=== PATIENT | male | born 1985 | race Two or more races ===

== ENCOUNTER 2017-05-30 09:17 | Emergency (ER) | payer OTHER ==
[2017-05-30] MEDS ORDERED: HYDROmorphONE/DILAUDID 1 MG/ML INJ IVP ONE (09:29)
--- NOTE | 2017-05-30 09:33 | EDPHY ---
HPI/HX/ROS/PE/MDM Narrative: CHIEF COMPLAINT: Left ankle injury HISTORY OF PRESENT ILLNESS: The patient is a 32 y/o male arriving via EMS with his complaining of left ankle pain secondary to a mechanical fall this morning. He was walking on icy stairs and lost traction causing him to roll his ankle inwards. He heard a crack and had immediate pain in his ankle, worse on the medial aspect. His pain is currently 8/10 in severity. He received IV Fentanyl from EMS en route here with some alleviation. He denies striking his head, loss of consciousness, weakness, paresthesias, or any other injuries. No recent illness. No fever, chills, chest pain, shortness of breath, palpitations, vomiting, diarrhea, urinary complaints, headache, lightheadedness. REVIEW OF SYSTEMS: Aside from elements discussed in the HPI, a comprehensive 10-point review of systems was reviewed and is negative. PAST MEDICAL HISTORY: Hypertension, diabetes type 2 SOCIAL HISTORY: at bedside. Nonsmoker. No alcohol use. VITAL SIGNS: Reviewed by me GENERAL: Well-developed, well-nourished, resting comfortably in no respiratory distress. HEENT: Atraumatic. Eyes: No icterus, no injection. Mouth: moist mucous membranes. No erythema or lesions. Neck: supple with no adenopathy. LUNGS: Clear to auscultation bilaterally, no wheezes, rhonchi or rales. CARDIAC: Regular rate and rhythm, no rubs, murmurs or gallops. ABDOMEN: Soft, nontender, nondistended, bowel sounds normal. BACK: No CVA tenderness. EXTREMITIES: Left ankle: Abrasion over talus and distal tibia, diffuse mild swelling of entire ankle, strong dorsalis pedis pulse, tenderness over medial malleolus with mild posterior and lateral malleolus tenderness. Other extremities atraumatic with normal ROM. NEURO: Alert and oriented, grossly nonfocal. SKIN: Warm and dry, no rash. PSYCHIATRIC: Normal mentation, no agitation. Portions of this note were transcribed by a electromedical equipment technician. I personally performed a history, physical exam, medical decision making, and confirmed accuracy of information the transcribed note. ED Course: This is a 32 y/o male who presents with an inversion injury to his left ankle after slipping on ice this morning. He has mild diffuse swelling of the joint and tenderness of bilateral malleoli, worse on the medial aspect. Plan for x- ray and pain management. 1mg IV Dilaudid and 30mg IV Toradol ordered. X-ray shows fractured distal fibula and medial malleolus. Reassessed patient and discussed findings. He is having some pain relief with medication. Procedure: Fracture treatment. The patient had x-rays taken and I confirmed that the patient had a fractured distal fibula and medial malleolus. I do not believe that the patient requires immediate orthopedic consultation, however, I suspect the patient will require operative intervention at a later point in time. A 3-way lower leg ortho-glass splint was applied with ample cast padding with the ankle in 90 degrees. After application of the splint, I returned and re-examined the patient. The splint was adequately immobilizing the joint and distal to the splint the patient's circulation and sensation was intact. 1040: Spoke with Dr. Sommer, orthopedist. He will see patient in his clinic tomorrow. Discussed discharge plan with the patient. He will be discharged with standard ankle fracture care and follow up instructions. He's been given a script for Percocet to use for severe pain. Return precautions discussed. He is comfortable with this plan. MDM: Differential diagnosis for the patient's injury was considered including but not limited to contusion, abrasion, laceration, fracture, open fracture, or dislocation. - Data Points Imaging Results: Impression: Distal tibial medial malleolar transverse fracture and distal fibular oblique displaced distal diaphyseal fracture with widening of the ankle mortise consistent with unstable eversion injury. Dictated By: Vamshi Cuellar Imaging: I viewed and interpreted images myself Medications Given: Discontinued Medications Hydromorphone HCl (Dilaudid) 1 mg IVP EDNOW ONE Stop: 05/30/17 09:30 Last Admin: 05/30/17 09:37 Dose: 1 mg Ketorolac Tromethamine (Toradol) 30 mg IVP EDNOW ONE Stop: 05/30/17 10:20 Last Admin: 05/30/17 10:33 Dose: 30 mg General Initial Vital Signs: Initial Vital Signs Temperature (C) 36.6 C 05/30/17 09:32 Heart Rate 93 05/30/17 09:32 Respiratory Rate 16 05/30/17 09:32 Blood Pressure 110/93 H 05/30/17 09:32 O2 Sat (%) 96 05/30/17 09:32 O2 Delivery Mode Room Air Allergies/Adverse Reactions: No Known Allergies Allergy (Unverified 05/30/17 09:30) Home Medications: Medication Instructions Recorded Atorvastatin Calcium 05/30/17 Lisinopril 05/30/17 Metformin HCl 05/30/17 oxyCODONE/APAP 5/325 [Percocet 1 tab PO QID PRN #14 tab 05/30/17 5/325 (*)] Departure - Departure Disposition: Home, Routine, Self-Care Clinical Impression: Closed left ankle fracture Qualifiers: Encounter type: initial encounter Qualified Code(s): S82.892A - Other fracture of left lower leg, initial encounter for closed fracture Condition: Good Instructions: Ankle Fracture (ED) Additional Instructions: Please follow up with orthopedic surgeon tomorrow. Please call today upon discharge to schedule this appointment. I have discussed your case with Dr. Sommer and he is expecting to see you in his clinic tomorrow. Most important parts of the therapy are rest, ice, immobilization, elevation, and nonsteroidal anti-inflammatories for pain and to decrease swelling. Apply ice for 20-30 minutes every 2-3 hours for the next 48 hours. I recommend Ibuprofen (Motrin, Advil) or Naproxen Sodium (Aleve) for pain and anti-inflammatory effects. You may take either one, but do not take both. Your dose is: Ibuprofen 600 mg every 6-8 hours with food. OR Naproxen Sodium (Aleve) 220 mg every 12 hours. Okay to use oxycodone as needed for severe pain. Referrals: Patient,NotPresent [Unknown] - As per Instructions Brayan Sommer MD [Medical Doctor] - As per Instructions Prescriptions: oxyCODONE/APAP 5/325 [Percocet 5/325 (*)] 1 tab PO QID PRN #14 tab PRN Reason: Pain Report Scribed for: Grace Acosta Report Scribed by: Yelena Barroso Date of Report: 05/30/17 Time of Report: 10:41
[2017-05-30 09:34] VITALS: BP 110/93; RESP 16; TEMP 97.9
[2017-05-30 09:42] VITALS: PULSE 95; O2SAT 95
[2017-05-30] MEDS ORDERED: KETOROLAC 30 MG/1 ML SDV IVP ONE (10:19)
== END 2017-05-30 11:11 | disposition home or self-care (01) ==
LOC: EDUNIT#
DX: S82.52XA Displaced fracture of medial malleolus of left tibia, initial encounter for closed fracture (principal); S82.432A Displaced oblique fracture of shaft of left fibula, initial encounter for closed fracture; I10 Essential (primary) hypertension; E11.9 Type 2 diabetes mellitus without complications; Z79.84 Long term (current) use of oral hypoglycemic drugs; W00.1XXA Fall from stairs and steps due to ice and snow, initial encounter; Y99.8 Other external cause status; Y93.01 Activity, walking, marching and hiking
CPT/HCPCS: 96374; J1170; J1885